=== PATIENT | male | born 1990 | race Hispanic/Latino ===

== ENCOUNTER 2020-07-30 16:18 | Emergency (ER) | payer SELFPAY ==
[2020-07-30] MEDS ORDERED: Boostrix 0.5 ML (Tdap) VIAL ONE ×2 (16:46→16:53)
[2020-07-30] MEDS ORDERED: Lidocaine 1% 20 ML MDV ONE (16:46)
[2020-07-30] MEDS ORDERED: Bacitracin 1 PK ONE (17:29)
== END 2020-07-30 17:36 | disposition home or self-care (01) ==
LOC: MADERS 16:18
DX: S61.211A Laceration without foreign body of left index finger without damage to nail, initial encounter (principal); Z23 Encounter for immunization; W45.8XXA Other foreign body or object entering through skin, initial encounter
CPT/HCPCS: 12001; 90715